=== PATIENT | female | born 1995 | race Caucasian/White ===

== ENCOUNTER 2020-06-23 20:35 | Emergency (ER) | payer OTHER, SELFPAY ==
--- NOTE | ~2020-06-23 | CT_ITS ---
EXAMINATION: CT abdomen pelvis w con DATE: 06/23/2020 23:09 INDICATION: Stabbing constant abdominal pain. History of ovarian cyst and endometriosis. TECHNIQUE: Computed tomography (CT) of the abdomen and pelvis was performed with 100 cc Omnipaque 350 intravenous contrast. The dose-length product was 949.97 mGy-cm. Automated exposure control and iterative reconstruction technique were employed. COMPARISON: None. FINDINGS: Lung bases are unremarkable. Heart size normal. No significant pleural or pericardial effus ion. No significant vascular abnormality. No lymphadenopathy. The liver, spleen, pancreas, adrenal glands are unremarkable. There are dilated renal pelvis bilatera lly, left greater than right with abrupt termination in the proximal ureter, suspicious for bilateral UPJ obstruction. Gallbladder is present. Nonobstructive bowel gas pattern. Small amount of free flui d in the pelvis, likely physiologic. No abnormal pelvic masses. Bladder is unremarkable. No free air. IMPRESSION: 1. No acute abdominal abnormality. 2: Possible bilateral UPJ obstruction. Recommend urology consultation. Reviewed, dictated and finalized at location A.
[2020-06-23 20:47] VITALS: BP 144/100; PULSE 117; RESP 18; TEMP 36.4; O2SAT 98
[2020-06-23 21:03] LABS: Basophils Absolute Auto 0.1 K/mm3 (0.0-0.1); Basophils Percent Auto 0.9 % (0.2-1.2); Eosinophils Percent Auto 0.2 % (0-4.4); Hematocrit 42.9 % (37.0-47.0); Hemoglobin 14.6 g/dL (12.0-15.0); Immature Granulocyte Absolute 0.04 K/mm3 (0.00-0.031); Immature Granulocyte Percent A 0.5 % (0-0.5); Lymphocytes Absolute Auto 1.87 K/mm3 (0.9-3.2); Lymphocytes Percent Auto 21.7 % (18.3-44.2); Mean Corpuscular Hemoglobin 32.7 pg (26-34); Mean Corpuscular Volume 96.2 fl (80-100); Mean Platelet Volume 9.5 fl (7.4-10.4); Monocytes Absolute Auto 0.8 K/mm3 (0.1-0.6); Monocytes Percent Auto 9.7 % (2.6-8.5); Neutrophils Absolute Auto 5.8 K/mm3 (1.3-6.7); Platelet Count Result 309 k/mm3 (150-375); Red Blood Count 4.46 M/mm3 (4.2-5.4); Red Cell Distribution Width 11.3 % (11.5-14.5); White Blood Count 8.6 K/mm3 (4.5-10.0)
[2020-06-23 21:14] LABS: Alanine Aminotransferase 23 U/L (4-35); Albumin Level 4.1 g/dL (3.5-5.1); Alkaline Phosphatase 42 U/L (38-126); Anion Gap 9 mmol/L (8-16); Aspartate Amino Transferase 27 U/L (14-36); Bilirubin,Total 0.3 mg/dL (0.2-1.3); Blood Urea Nitrogen 11 mg/dL (7-17); Calcium 9.4 mg/dL (8.4-10.2); Carbon Dioxide 23 mmol/L (22-30); Chloride 106 mmol/L (98-107); Estimated CRCL calculation 101 ml/min; Estimated Glomerular Filt Rate > 60; Glucose 106 mg/dL (65-105); Lipase 56 U/L (23-300); Potassium 4.1 mmol/L (3.4-5.0); Sodium 138 mmol/L (137-145)
--- NOTE | 2020-06-23 22:08 | ED.ABDPAIN ---
HPI - Abdominal Pain General Chief Complaint: Abdominal Pain Stated Complaint: abd pain Time Seen by Provider: 06/23/20 22:03 Source: patient, family and RN notes reviewed Limitations: no limitations History of Present Illness HPI narrative: Patient is 25 years old white female presents with lower abdominal pain started 8 hours prior to arrival to the emergency room today. Radiating to lower back. Patient denies any fever, chills, nausea, vomiting, aggravating or relieving factors. Patient also denies any urinary symptoms vaginal bleeding or discharge. Patient declined to take any pain medication in the emergency room. No history of abdominal surgery, history of depression. Review of Systems Review of Systems: Narrative: CONSTITUTIONAL: Denies fever, chills, or sweats. EYES: Denies visual changes, redness, or discharge. ENT: Denies rhinorrhea, congestion, sore throat, or otalgia. CARDIOVASCULAR: Denies chest pain, palpitations, or edema. RESPIRATORY: Denies cough or dyspnea. GASTROINTESTINAL: Denies abdominal pain, nausea, vomiting, or diarrhea. GENITOURINARY: Denies dysuria or hematuria. SKIN: Denies rash or itching. MUSCULOSKELETAL: Denies back pain, joint pain, or myalgia. NEUROLOGIC: Denies headache, numbness, or weakness. PSYCHIATRIC: Denies anxiety or depression. Exam Narrative: Exam Narrative: General appearance: Well-developed, well-nourished Skin: Normal color Head: Normocephalic, nontraumatic Eyes: Clear conjunctiva ENT: Oropharynx normal, ears normal, nose normal Neck: Supple, nontender Chest and respiratory: Airway patent, no respiratory distress, no accessory muscle use Heart: Regular rate/rhythm Abdomen: Soft, nontender, no organomegaly, quiet bowel sounds Vascular: Normal peripheral pulses, normal capillary refill. Musculoskeletal: Normal range of motion, nontender back Neurologic: Alert and oriented ?3, [employer] is normal as tested, no gross motor deficit Course Course Emergency Course: Stable Consultations Consultation #1: Dr. Nunez. 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 Date: 06/23/20 Time: 23:37 Vital Signs Vital signs: Vital Signs Temperature 36.4 C 06/23/20 20:47 Pulse Rate 117 H 06/23/20 20:47 Respiratory Rate 18 06/23/20 20:47 Blood Pressure 144/100 H 06/23/20 20:47 Pulse Oximetry 98 06/23/20 20:47 Temperature 36.4 C 06/23/20 20:47 Pulse Rate 117 H 06/23/20 20:47 Respiratory Rate 18 06/23/20 20:47 Blood Pressure 144/100 H 06/23/20 20:47 Pulse Oximetry 98 06/23/20 20:47 MDM - Abdominal Pain MDM Narrative Medical decision making narrative: Patient presents with lower abdominal pain. My differential diagnosis as below. Labs, CT abdomen pelvis with IV contrast ordered. Further plan to follow Differential Diagnosis Differential diagnosis: Likely acute appendicitis, constipation, diverticulitis and other (Urinary tract infection) Lab Data Result diagrams: 06/23/20 20:56 06/23/20 20:56 Labs: Lab Results 06/23/20 06/23/20 06/23/20 Range/Units 20:56 20:56 22:11 WBC 8.6 (4.5-10.0) K/mm3 RBC 4.46 (4.2-5.4) M/mm3 Hgb 14.6 (12.0-15.0) g/dL Hct 42.9 (37.0-47.0) % MCV 96.2 (80-100) fl MCH 32.7 (26-34) pg MCHC 34.0 (32-36) g/dl RDW 11.3 L (11.5-14.5) % Plt Count 309 (150-375) k/mm3 MPV 9.5 (7.4-10.4) fl Immature Gran % (Auto) 0.5 (0-0.5) % Neut % (Auto) 67.0 (45.5-73.1) % Lymph % (Auto) 21.7 (18.3-44.2) % Graves % (Auto) 9.7 H (2.6-8.5) % Eos % (Auto) 0.2 (0
[2020-06-23 22:22] LABS: Add Urine Microscopic? YES; Appearance Urine Clear (Clear); Bacteria Urine Trace /hpf; Bilirubin Urine Negative (Negative); Blood Urine 1+ (Negative); Color Urine Straw (Yellow); Glucose Urine UA Negative (Negative); Ketones Urine Negative (Negative); Leukocyte Esterase Ur 1+ LEU/UL (Negative); Nitrate Urine Negative (Negative); Protein Urine Negative (Negative); Specific Grav Ur 1.008 (1.001-1.035); Squamous Epithelial Cell Urine Occasional /hpf (Few); Urobilinogen Urine Negative mg/dL (<2.0)
[2020-06-23 22:55] VITALS: BP 148/78; PULSE 101; RESP 18; O2SAT 97
[2020-06-23 23:55] VITALS: BP 138/82; PULSE 98; RESP 16; O2SAT 99
== END 2020-06-23 23:55 | disposition home or self-care (01) ==
PROVIDERS: Emergency Provider Emergency Medicine
DX: N13.5 Crossing vessel and stricture of ureter without hydronephrosis (principal); R10.30 Lower abdominal pain, unspecified
CPT/HCPCS: 36415; 74177; 80053; 81001; 81025; 83690; 85025; 99284; Q9967